=== PATIENT | female | born 1970 ===

== ENCOUNTER 2022-07-29 10:57 | Day surgery (SDC) | payer BC ==
[~2022-07-29] VITALS: Ht 160.2 cm; Wt 65.9 kg
[2022-07-29] VITALS (8 sets, daily range): BP systolic 99–116; BP diastolic 56–74
[2022-07-29] MEDS ORDERED: LACTATED RINGERS 1,000 ML IV ONE (11:10)
[2022-07-29] MEDS ORDERED: OMEP20TA56 PO (11:18)
--- NOTE | 2022-07-29 12:03 | Progress Note-Pre Operative ---
Pre-Operative Progress Note Date of Available H&P: Jul 29, 2022 Date H&P Reviewed: Jul 29, 2022 Time H&P Reviewed: 12:00 History & Physical: No changes noted Pre-Operative Diagnosis: JESSICA DUKE MD Jul 29, 2022 12:03
[2022-07-29] MEDS ORDERED: PANT40TA2 PO (12:04)
--- NOTE | 2022-07-29 12:05 | Discharge Inst-Surgical ---
D/C Lap Instructions-ADELINE New, Converted, or Re-Newed RX: RX on Chart Follow Up Activity as tolerated High Fiber Diet 25g or more per day Avoid Alcohol, Caffeine, Spicy [place] and Acid foods. Drink 64 fluid oz or more of fluids per day. Symptoms to Report: Fever over 101 degree F, Nausea/Vomiting If any problems/questions: Contact your physician or go to Emergency Room JESSICA LR MD Jul 29, 2022 12:05
[2022-07-29] MEDS ORDERED: ONDANSETRON 4 MG/2 ML (SDV) Z0FRAN IVP PRN (12:15)
[2022-07-29] MEDS ORDERED: ONDANSETRON 4 MG (ZOFRAN) ORAL DISSOLVE TAB PO PRN (12:15)
[2022-07-29] MEDS ORDERED: LACTATED RINGERS 1,000 ML IV STA (12:19)
[2022-07-29] MEDS ORDERED: LIDOCAINE JELLY 2% 6 ML SYRINGE MM PRN (12:30)
[2022-07-29] MEDS ORDERED: HURRICAINE EXT TUBE (BENZOCAINE) XX PRN (12:30)
[2022-07-29] MEDS ORDERED: proPOfol 200 MG/20 ML (DIPRIVAN) VIAL IV ONE (13:00)
[2022-07-29] MEDS ORDERED: MIDAZOLAM 2 MG/2 ML (VERSED) VIAL ONE (13:00)
--- NOTE | 2022-07-29 13:26 | Anesthesia-General Post-Op ---
MAC Patient Condition Mental Status/LOC: Same as Preop Cardiovascular: Satisfactory Nausea/Vomiting: Absent Respiratory: Satisfactory Pain: Controlled Complications: Absent Post Op Complications Complications None Follow Up Care/Instructions Patient Instructions None needed. Anesthesiology Discharge Order Discharge Order Patient is doing well, no complaints, stable vital signs, no apparent adverse anesthesia problems. No complications reported per nursing. LARS REYES CRNA Jul 29, 2022 13:26
--- NOTE | 2022-07-29 13:33 | Progress Note-Post Operative ---
Post-Operative Progess Note Surgeon (s)/Journey Lineman (s) Surgeon JESSICA LR MD Journey Lineman: none Pre-Operative Diagnosis GERD Post-Operative Diagnosis reflux esophagitis(B), small HH(2cm), moderate gastritis. Procedure & Operative Findings Date of Procedure 07/29/22 Procedure Performed/Findings EGD with bx. Anesthesia Type mac Estimated Blood Loss Estimated blood loss (mL): minimal Specimens/Packing Specimens Removed ge jxn, antrum JESSICA LR MD Jul 29, 2022 13:33
--- NOTE | 2022-07-29 21:46 | OPERATIVE REPORT ---
DATE OF SERVICE: 07/29/2022 ATTENDING PRIMARY CARE PHYSICIAN: Dr. Rojas Angeles. PREOPERATIVE DIAGNOSIS: Gastroesophageal reflux disease. POSTOPERATIVE DIAGNOSES: Reflux esophagitis, [place] grade B, small hiatal hernia 2 cm in size, moderate severity gastritis. Pylorus and duodenum appeared normal. PROCEDURE: EGD with biopsy. SURGEON: Jessica Lr MD. ANESTHESIA: Monitored anesthesia care. ESTIMATED BLOOD LOSS: Minimal. FINDINGS: Reflux esophagitis, [place] grade B, small hiatal hernia 2 cm in size, moderate severity gastritis. Pylorus and duodenum appeared normal. DISPOSITION: The patient tolerated the procedure well. INDICATIONS: The patient is a 52-year-old female referred over to us for epigastric crampy pain and burning sensation as well as reflux type of symptoms. She reports that this has been going on for approximately six months and was initially started on omeprazole, which initially helped; however, became less effective over time. She also does report some episodes of nausea; however, no vomiting. She does not report any episodes of hematemesis, no coffee ground emesis. DESCRIPTION OF PROCEDURE: The patient was brought to the endoscopy suite, laid in left lateral decubitus position. After adequate IV pain and sedative medications and monitored anesthesia care, the mouthpiece was applied. The endoscope was then placed in the mouth, visualizing the pharynx and hypopharyngeal region. Vocal cords, epiglottis and vallecula identified and appeared to be normal. The endoscope was then gently intubated into the esophageal opening and esophagus insufflated. The endoscope was then advanced to the first, second and third portion of esophagus at the level of the GE junction, a reflux esophagitis, [place] grade B identified. A biopsy was taken with forceps with visualization of good hemostasis. The endoscope was then advanced into the stomach and endoscope retroflexed, visualizing a small hiatal hernia approximately 2 cm in size. There was a moderate diffuse gastritis. No ulcers, polyps, or any neoplasms and a biopsy was taken of the antrum to rule out H. pylori with visualization of good hemostasis. The endoscope was then advanced to the pylorus and the first and second portion of the duodenum, which appeared normal with no inflammatory changes as well as no ulcerations or any distal obstructions. The endoscope was then slowly withdrawn while taking a second look and suctioning of residual air with no additional findings. The patient tolerated the procedure well. She does have a moderate gastritis as well as small hiatal hernia, which can cause her symptoms; however, should be controlled with the necessary lifestyle and dietary accommodation as well as the omeprazole 40 mg daily; however, she continues to be symptomatic and we will add Protonix to her medication regimen to be taken at a different time during the day. If she continues to have issues with nausea after eating meals, this may represent another etiology and we will then proceed with an ultrasound of the gallbladder and if no stones or sludge identified, then proceed with a HIDA scan to look for the possibility of biliary dyskinesia. She will also be instructed to avoid caffeinated beverages, spicy, greasy and acidic foods as well as take in small and more frequent meals and avoidance of eating at night. Job ID: [id number] DocumentID: [id number] Dictated Date: 07/29/2022 13:29:16 Portal Architect Date: 07/29/2022 21:45:14 Dictated By: JESSICA LR MD
== END 2022-07-29 14:25 | disposition home or self-care (01) ==
LOC: ENDO 10:57
PROVIDERS: ATTEND Surgery
DX: K21.00 Gastro-esophageal reflux disease with esophagitis, without bleeding (principal); K29.50 Unspecified chronic gastritis without bleeding; K31.89 Other diseases of stomach and duodenum; K44.9 Diaphragmatic hernia without obstruction or gangrene
CPT/HCPCS: 88305